=== PATIENT | male | born 1945 | race American Indian/Alaskan Native ===

== ENCOUNTER 2016-08-17 09:43 | Outpatient (CLI) | payer MEDICARE ==
--- NOTE | 2016-08-18 10:11 | Magnetic Resonance Report ---
MRI of the lumbar spine without contrast. History: Low back pain/spinal disorder. Procedure: Sagittal T1-weighted, T2-weighted, inversion recovery images, and axial T1 and T2-weighted images were used. Findings: Incidental note is made of a partially visualized right renal cyst measuring 2.8 cm in diameter. Correlation with renal ultrasound is recommended. The L1-2 and L2-3 levels are unremarkable. At L3-4, there is a prominent central disc herniation with marked compression of the thecal sac there is mild hypertrophy of the ligamentum flavum. Central canal stenosis is present. At the L4-5 level, there is a broad-based moderate disc branch, eccentric to the right . There is moderate effacement of the thecal sac. There is bilateral foraminal stenosis, worse on the right. The L5 S1 level is unremarkable. A transitional vertebra is seen at L1. The conus is normal. No significant bony abnormalities are seen. Impression: 1. Prominent central disc herniation L3-4 with central canal stenosis. 2. Broad-based moderate disc branch at L4-5, eccentric to the right with right foraminal stenosis. 3. Partially imaged right renal cyst. Correlation with renal ultrasound is recommended for full evaluation.
== END 2016-08-17 09:44 | disposition home or self-care (01) ==
LOC: MRI 09:43
PROVIDERS: ATTEND Neurological Surgery
DX: M48.06 Spinal stenosis, lumbar region (principal); M51.26 Other intervertebral disc displacement, lumbar region; M24.28 Disorder of ligament, vertebrae; N28.1 Cyst of kidney, acquired
CPT/HCPCS: 72148

== ENCOUNTER 2016-11-16 20:04 | Inpatient (IN) | payer MEDICARE ==
[2016-11-16 21:08] LABS: Basophils % (Auto) 0.6 % (0.0-1.8); Eosinophils % (Auto) 1.5 % (0.0-4.3); Hematocrit 38.2 % (35.5-45.6); Hemoglobin 12.5 gm/dl (11.8-15.2); Mean Corpuscular HGB Conc 33 % (32-34); Mean Corpuscular Hemoglobin 33 pg (28-32); Mean Corpuscular Volume 100 fl (84-94); Platelet Count 188 K/mm3 (140-440); Red Blood Count 3.82 M/mm3 (3.65-5.03); Red Cell Distribution Width 15.2 % (13.2-15.2); White Blood Count 5.9 K/mm3 (4.5-11.0)
[2016-11-16 21:52] LABS: Anion Gap 20 mmol/L; BUN/Creatinine Ratio 14.66; Blood Urea Nitrogen 22 mg/dL (9-20); Calcium 9.5 mg/dL (8.4-10.2); Carbon Dioxide 23 mmol/L (22-30); Chloride 102.1 mmol/L (98-107); Glucose 93 mg/dL (75-100); Potassium 4.3 mmol/L (3.6-5.0); Sodium 141 mmol/L (137-145)
--- NOTE | 2016-11-16 23:03 | Cat Scan Report ---
FINAL REPORT PROCEDURE: CT ANGIO CHEST TECHNIQUE: Computerized tomographic angiography of the chest was performed after the IV injection of iodinated nonionic contrast including image processing. The image data was postprocessed using 2-dimensional multiplanar reformatted (MPR) and 3-dimensional (MIP and/or volume rendered) techniques. HISTORY: CHEST PAIN WITH SYNCOPE COMPARISON: No prior studies are available for comparison. FINDINGS: Heart and pericardium: Normal. Thoracic aorta: Normal. Pulmonary vasculature: Normal. Lymph nodes: No enlarged thoracic lymph nodes. Lungs: A 3 millimeters subpleural nodule is noted in the lateral aspect of right upper lobe and a 4 millimeter nodule is noted in the lateral aspect of right middle lobe. There are no confluent infiltrates. Pleural spaces are clear. Pleural space: No effusion, thickening, or pneumothorax. Musculoskeletal structures: No significant abnormality. Upper abdominal structures: There are 2 simple appearing cysts identified in the visualized upper portion of right kidney larger measuring 2.9 centimeters.. IMPRESSION: No evidence of pulmonary embolism No acute pulmonary infiltrates Small subpleural nodules in right upper and middle lobes as described above. A 3 to six-month follow-up study may be recommended for further evaluation.
--- NOTE | 2016-11-16 23:56 | Emergency Department Report ---
ED Chest Pain HPI - General Chief Complaint: Syncope Stated Complaint: CHEST PAIN Time Seen by Provider: 11/16/16 20:39 Source: patient, family Mode of arrival: Ambulatory Limitations: No Limitations - History of Present Illness MD Complaint: chest pain -: Sudden Pain Location: substernal, left chest Severity scale (0 -10): 7 Quality: heaviness Worsens With: exertion re: denies: nausea, vomting Other Symptoms: denies: cough Treatments Prior to Arrival: none - Related Data Home Medications Medication Instructions Recorded Confirmed Last Taken Aspirin [Ecotrin] 81 mg PO DAILY 07/09/13 11/16/16 07/09/13 Lisinopril [Zestril TAB] 10 mg PO DAILY 07/09/13 11/16/16 07/09/13 Previous Rx's Medication Instructions Recorded Last Taken Type HYDROcodone/APAP 5-325 [[place] 1 each PO Q6HR PRN #15 tablet 06/09/13 07/09/13 Rx 5/325 mg] Meclizine HCl [Antivert] 25 mg PO TID PRN #20 tablet 07/10/13 Unknown Rx Allergies Allergy/AdvReac Type Severity Reaction Status Date / Time benzidene Allergy Rash Uncoded 06/09/13 14:18 Heart Score - HEART Score History: Moderately suspicious EKG: Non-specific Age: > 65 Risk factors: > 3 risk factors or hx of atherosclerotic disease Troponin: < normal limit HEART Score: 6 - Critical Actions Critical Actions: 4-6 pts:12-16.6% risk of adverse cardiac event. Should be admitted ED Review of Systems ROS: Stated complaint: SYNCOPE EPISODE Other details as noted in HPI Comment: All other systems reviewed and negative ED Past Medical Hx - Past Medical History Previous Medical History?: Yes Hx Hypertension: Yes Hx CVA: No Hx Diabetes: No Hx Renal Disease: No Hx Arthritis: Yes Hx Seizures: No Hx Asthma: No Additional medical history: PTSD - Surgical History Past Surgical History?: No Hx Pacemaker: No - Social History Smoking Status: Never Smoker - Medications Home Medications: Home Medications Medication Instructions Recorded Confirmed Last Taken Type HYDROcodone/APAP 5-325 [[place] 1 each PO Q6HR PRN #15 tablet 06/09/13 11/16/16 Rx 5/325 mg] Aspirin [Ecotrin] 81 mg PO DAILY 07/09/13 11/16/16 07/09/13 History Lisinopril [Zestril TAB] 10 mg PO DAILY 07/09/13 11/16/16 07/09/13 History Meclizine HCl [Antivert] 25 mg PO TID PRN #20 tablet 07/10/13 11/16/16 Unknown Rx ED Physical Exam - General Limitations: No Limitations General appearance: alert - Head Head exam: Present: atraumatic - ENT ENT exam: Present: normal exam - Neck Neck exam: Present: normal inspection - Respiratory Respiratory exam: Present: normal lung sounds bilaterally - Cardiovascular Cardiovascular Exam: Present: regular rate - GI/Abdominal GI/Abdominal exam: Present: soft. Absent: distended, tenderness, guarding, rebound - Extremities Exam Extremities exam: Present: normal inspection - Back Exam Back exam: Present: normal inspection - Neurological Exam Neurological exam: Present: alert, oriented X3, CN II-XII intact, normal gait, reflexes normal. Absent: altered, motor sensory deficit - Skin Skin exam: Present: warm, dry ED Course Vital Signs 11/16/16 20:16 Temperature 98.3 F Pulse Rate 74 Blood Pressure 120/68 O2 Sat by Pulse 97 Oximetry - Reevaluation(s) Reevaluation #1: 11/16/16 23:[address] ANGIOGRAM IS NEGATIVE. AMALIA score - Amalia Score Age > 65: (1) Yes Aspirin use within the Past 7 Days: (0) No 3 or more CAD Risk Factors: (0) No 2 or more Angina events in past 24 hrs: (0) No Known CAD with more than 50% Stenosis: (0) No Elevated Cardiac Markers: (0) No ST Deviation Greater than 0.5mm: (0) No AMALIA Score: 1 ED Medical Decision Making - Lab Data Result diagrams: 11/16/16 20:46 11/16/16 20:46 Critical care attestation.: If time is entered above; I have spent that time in minutes in the direct care of this critically ill patient, excluding procedure time. ED Disposition Clinical Impression: Chest pain Disposition: OP ADMIT IP TO THIS HOSP Is pt being admited?: Yes Does the pt Need Aspirin: Yes Condition: Stable Instructions: Chest Pain (ED) Referrals: PRIMARY CARE,MD [Primary Care Provider] - 3-5 Days
[2016-11-16] MEDS ORDERED: BABY ASPIRIN PO ONE (23:59)
[2016-11-17] MEDS ORDERED: ZOFRAN IV PRN (00:22)
[2016-11-17] MEDS ORDERED: TYLENOL PO PRN (00:22)
[2016-11-17] MEDS ORDERED: DULCOLAX PR PRN (00:22)
[2016-11-17] MEDS ORDERED: MILK OF MAGNESIA PO PRN (00:22)
[2016-11-17] MEDS ORDERED: PERCOCET 5/325 PO PRN (00:22)
--- NOTE | 2016-11-17 00:28 | History and Physical Report ---
History of Present Illness Date of examination: 11/17/16 History of present illness: 70-year-old man with history of hypertension, PTSD comes emergency room with complaining of feeling dizzy and passing out shortly after he ate. He also complaining of chest pain in the left substernal area which she describes as a sharp pain, constant, lasting for one hour, intensity 7/10, no radiation any cannot identify exacerbating or relieving factors. He admits to diaphoresis, no nausea vomiting, shortness of breath, palpitation Patient denies cough, abdominal pain, hematochezia, dysuria, frequency, focal weakness, dysarthria, fever chills, polydipsia polyuria, hot or cold intolerance , easy bruisability, or rash or bleeding from mucosal membrane, rhinorrhea, epistaxis, earache, tinnitus, blurry vision, eye discharge, anxiety, depression. Other review of systems negative PAST SURGICAL HISTORY: None SOCIAL HISTORY:Drink 1 beer a day, no alcohol or drugs FAMILY HISTORY: Hypertension Medications and Allergies Allergies Allergy/AdvReac Type Severity Reaction Status Date / Time benzidene Allergy Rash Uncoded 06/09/13 14:18 Home Medications Medication Instructions Recorded Confirmed Last Taken Type HYDROcodone/APAP 5-325 [[place] 1 each PO Q6HR PRN #15 tablet 06/09/13 11/16/16 Rx 5/325 mg] Aspirin [Ecotrin] 81 mg PO DAILY 07/09/13 11/16/16 07/09/13 History Lisinopril [Zestril TAB] 10 mg PO DAILY 07/09/13 11/16/16 07/09/13 History Meclizine HCl [Antivert] 25 mg PO TID PRN #20 tablet 07/10/13 11/16/16 Unknown Rx Exam - Physical Exam Narrative exam: Gen. appearance: Patient lying in bed, no apparent distress HEENT: Normocephalic, atraumatic, pupils equally round and reactive to light, extraocular movement intact, and no sclericterus,. No JVD or thyromegaly or nodule,neck supple, no carotid bruit ,mucous membranes moist, no exudate or erythema Heart: S1, S2, regular rate and rhythm Lungs: Clear to auscultation bilaterally, breathing comfortable Abdomen: Positive bowel sounds, nontender, nondistended, no organomegaly Extremity: No edema, cyanosis, clubbing Skin: No rash, nodules, warm, dry Neuro: Oriented 3, cranial nerves II-12 intact, speech is fluent, motor and sensory intact - Constitutional Vitals: Temp Pulse Resp BP Pulse Ox 98.3 F 74 120/68 97 11/16/16 20:16 11/16/16 20:16 11/16/16 20:16 11/16/16 20:16 Results - Labs CBC & Chem 7: 11/16/16 20:46 11/16/16 20:46 Labs: Abnormal lab results 11/16/16 11/16/16 Range/Units 20:46 20:46 MCV 100 H (84-94) fl MCH 33 H (28-32) pg [place] % (Auto) 10.5 H (0.0-7.3) % BUN 22 H (9-20) mg/dL - Imaging and Cardiology EKG: image reviewed CT scan - chest: report reviewed Assessment and Plan Chest pain, rule out ACS Syncope Hypertension now normotensive PTSD Admit to medicine Check cardiac enzymes, stress test, consult cardiology Continue outpatient medication, start DVT prophylaxis
[2016-11-17 01:24] LABS: Creatine Kinase MB 2.5 ng/mL (0.0-4.0)
[2016-11-17 01:25] LABS: Creatine Kinase 258 units/L (55-170)
[2016-11-17] MEDS ORDERED: DESYREL PO SCH (01:42)
[2016-11-17 06:27] LABS: Creatine Kinase MB 2.5 ng/mL (0.0-4.0)
[2016-11-17 06:30] LABS: Creatine Kinase 257 units/L (55-170)
--- NOTE | 2016-11-17 08:02 | Admit Criteria Form ---
Admission Criteria Documentation: CHEST PAIN Clinical Indications for Admission to Inpatient Care (Place 'X' for any and all applicable criteria): Admission is indicated for chest pain and ANY ONE of the following(1)(2)(3)(4)(5 ): [ ]I. Angina with acute coronary syndrome (Also use Myocardial Infarction or Angina guideline) [ ]II. Hemodynamic instability [ ]III. Angina needing acute intervention as indicated by ALL of the following( 11)(12): [ ]a) Unstable angina is present as indicated by angina that is ANY ONE of the following: [ ]i) New onset [ ]ii) Nocturnal [ ]iii) Prolonged at rest [ ]iv) Progressive [ ]b) Angina warrants acute intervention as indicated by ANY ONE of the following: [ ]i) Recurrent angina (e.g, not responding as previously to treatment) [ ]ii) Angina at rest or with low-level activities despite initial medical therapy [ ]iii) New or presumably new ST-segment depression on ECG [ ]iv) Signs or symptoms of heart failure (eg, dyspnea, pulmonary edema) [ ]v) New or worsening mitral regurgitation [ ]vi) Hemodynamic instability [ ]vii) Dangerous arrhythmia (eg, sustained ventricular tachycardia) [ ]viii) History of percutaneous coronary intervention within 6 months [ ]ix) History of coronary artery bypass graft surgery [ ]x) AMALIA risk score of 2 or greater[A] [ ]xi) History of Diabetes(14) [ ]xii) High-risk cardiac ischemia findings on noninvasive testing (e.g, echocardiogram, treadmill testing, nuclear scan) [ ]xiii) Chronic renal insufficiency (ie, estimated GFR less than 60 mL/min/1.732m) [ ]xiv) Left ventricular ejection fraction less than 40% [ ]IV. Evidence of PR (eg, cardiac biomarkers positive, ST-segment elevation on ECG) also use Myocardial Infarction Criteria Form. [ ]V. Pulmonary edema [ ]. Respiratory distress [ ]VII. Chest pain indicative of serious diagnosis other than coronary artery disease (eg, aortic dissection) [ ]VIII. Contraindications and/or Inappropriate clinical situations for Observational Care in patients with Chest Pain, when ANY ONE of the following is required: [ ]a) Patient with risk factor for pulmonary embolism, acute coronary syndrome and myocardial infarction (18) [ ]b) Patient with Pulmonary embolism require an average LOS of 4.3 days, therefore emergency department observation management is inappropriate 18,23 [ ]c) Painful condition/s in the elderly, have the highest rate of recidivism after emergency department observation management (10.8%) 20,21,22 [ ]d) Elevated cardiac biomarker requires intensive and exhaustive care (19) [X ]IX. General contraindications and/or Inappropriate clinical situations for Observational Care in patients with Chest Pain, when ANY ONE of the following is required: [X ]a) Prediction of prolongation of LOS based on ANY ONE of the following may be considered as a contraindication for observational care 2, 3, 4, 5, 6, 7, 8, 9, 10, 11 [X ]i) Age > 65 yrs. [ X]ii) Patient arriving by ambulance [ ]iii) Patient with high acuity [ ]iv) Patient requiring vital sign monitoring [ ]v) Patient on IV medication [ ]b) Systolic blood pressures 180mmHg 3,12 [ ]c) Patient with altered mental status including delirium and other alteration of consciousness, (3) [ ]d) Patient whose discharge disposition will be to a prison home or rehabilitation home should not be managed in Emergency Department Observation Unit. CMS rule requires 3 days hospital stay before such placement. 3,13 [ ]e) Patient with failure to thrive due to broad array of etiologies 3,16,17 [ ]f) Inability to ambulate 3,14 Extended stay beyond goal length of stay may be needed for (1)(28): [ ]a) Specific condition diagnosed after evaluation (eg, pulmonary embolism, aortic dissection) [ ]b) Unstable angina [ ]c) Continued suspicion of acute coronary syndrome with inability to complete needed cardiac evaluation (eg, patient clinically unable to undergo stress testing) [ ]d) Myocardial infarction (Contents from ANGINA and CHEST PAIN clinical indications for admission to inpatient care have been integrated in this form) The original [employer] content created by [employer] has been revised. The portions of the content which have been revised are identified through the use of italic text or in bold, and [facility] has neither reviewed nor approved the modified material. All other unmodified content is copyright [employer]. Please see references footnoted in the original [facility] edition 2016 Admission Criteria Met: Yes
--- NOTE | 2016-11-17 09:39 | Consultation ---
History of Present Illness Consult date: 11/17/16 Requesting physician: SACHIN BLUNT Consult reason: chest pain, syncope History of present illness: The patient is a 70 year old male with a history of hypertension, vertigo, PTSD who presented following a syncopal episode at home. He states that he has just finished eating and was sitting down when he suddenly felt dizzy and had a left sided headache. He felt himself "going out" and apparently lost consciousness for several minutes according to his . He remained seated in the chair throughout the episode. When he came to he did complain of some left sided chest pain and mild shortness of breath. He states that the pain resolved after EMS arrived and placed him on oxygen. Troponin negative x 3. Chest CTA negative for PE. Lexiscan thallium stress test done this morning was negative for ischemia. Past History Past Medical History: hypertension, other (PTSD, vertigo) Past Surgical History: No surgical history Social history: , full code. denies: smoking, alcohol abuse, prescription drug abuse, IV drug use Family history: no significant family history Medications and Allergies Allergies Allergy/AdvReac Type Severity Reaction Status Date / Time benzidene Allergy Rash Uncoded 06/09/13 14:18 Home Medications Medication Instructions Recorded Confirmed Last Taken Type HYDROcodone/APAP 5-325 [[place] 1 each PO Q6HR PRN #15 tablet 06/09/13 11/16/16 Rx 5-325 mg TAB] Aspirin [Aspirin Enteric Coated] 81 mg PO DAILY 07/09/13 11/16/16 07/09/13 History Lisinopril [Zestril TAB] 10 mg PO DAILY 07/09/13 11/16/16 07/09/13 History Meclizine HCl [Antivert] 25 mg PO TID PRN #20 tablet 07/10/13 11/16/16 Unknown Rx Famotidine [Pepcid] 20 mg PO BID #30 tablet 11/17/16 Unknown Rx Active Meds: Active Medications Acetaminophen (Tylenol) 650 mg PO Q4H PRN PRN Reason: Pain MILD(1-3)/Fever >100.5/COLON Aspirin (Halfprin Ec) 81 mg PO DAILY MARY Bisacodyl (Dulcolax) 10 mg HI QDAY PRN PRN Reason: Constipation unrelieved by MOM Enoxaparin Sodium (Lovenox) 30 mg SUB-Q QDAY [facility] Magnesium Hydroxide (Milk Of Magnesia) 30 ml PO Q4H PRN PRN Reason: Constipation Ondansetron HCl (Zofran) 4 mg IV Q8H PRN PRN Reason: N/V unrelieved by Reglan Oxycodone/Acetaminophen (Percocet 5/325) 1 tab PO Q6H PRN PRN Reason: Pain, Moderate (4-6) Trazodone HCl (Desyrel) 100 mg PO QHS [facility] Last Admin: 11/17/16 02:00 Dose: 100 mg Review of Systems Constitutional: no fever, no chills Ears, nose, mouth and throat: no nasal congestion, no nasal discharge, no sinus pressure Cardiovascular: chest pain, syncope, shortness of breath Respiratory: no cough, no congestion, no wheezing Gastrointestinal: no abdominal pain, no nausea, no vomiting, no diarrhea, no constipation Genitourinary Male: no dysuria, no hematuria Musculoskeletal: no neck stiffness, no neck pain, no myalgias Integumentary: no rash, no pruritis Neurological: no parathesias, no numbness, no tingling, no headaches Endocrine: no cold intolerance, no heat intolerance Hematologic/Lymphatic: no easy bruising, no easy bleeding Allergic/Immunologic: no urticaria, no wheezing Physical Examination Vital Signs Temp Pulse BP Pulse Ox 98.3 F 74 120/68 97 11/16/16 20:16 11/16/16 20:16 11/16/16 20:16 11/16/16 20:16 General appearance: no acute distress HEENT: Positive: PERRL, Normocephaly, Mucus Membranes Moist Neck: Positive: neck supple, trachea midline Cardiac: Positive: Reg Rate and Rhythm, S1/S2 Lungs: Positive: clear to auscultation Neuro: Positive: Grossly Intact Abdomen: Positive: Soft, Active Bowel Sounds Skin: Positive: Clear. Negative: Rash Extremities: Present: normal. Absent: edema Results 11/16/16 20:46 11/16/16 20:46 Cardiac Enzymes 11/17/16 11/17/16 Range/Units 00:46 04:37 CK-MB (CK-2) 2.5 2.5 (0.0-4.0) ng/mL - Imaging and Cardiology Echo: report reviewed EKG: image reviewed EKG interpretations - Telemetry EKG Rhythm: Sinus Rhythm - EKG Sinus rhythms and dysrhythmias: sinus rhythm Repolarization changes or abnormalities: nonspecific abnormality, ST segment, and/or T wave Assessment and Plan Chest pain resolved troponin negative x 3 no acute EKG changes Stress MPI today: no ischemia Syncope->? etiology chest CTA negative for PE no arrhythmias noted on telemetry Hypertension stable Lexiscan thallium stress test today was negative for ischemia. Stable cardiac status. Follow up in the office in 1-2 weeks. The patient has been seen in conjunction with Dr. Carrasco who agrees with the assessment and plan of care. Thank you Dr. Blunt for allowing us to participate in the care of this patient.
[2016-11-17] MEDS ORDERED: LEXISCAN IV ONE ×2 (09:50→10:00)
[2016-11-17] MEDS ORDERED: LOVENOX SUB-Q SCH ×2 (10:00)
[2016-11-17] MEDS ORDERED: HALFPRIN EC PO SCH (10:00)
[2016-11-17] MEDS ORDERED: ZESTRIL PO SCH (10:00)
--- NOTE | 2016-11-17 10:23 | Discharge Summary ---
Providers - Providers Date of Admission: 11/17/16 00:22 Date of discharge: 11/17/16 Attending physician: OSVALDO BROWN 11/17/16 03:36 Consult to Physician [CONS] Routine Consulting Provider: UTE VERDUZCO Reason For Exam: cp/syncope Notified:: real estate legal secretary pl call Primary care physician: YAMINI MOSLEY MD Hospitalization Condition: Good Hospital course: patient is 70-year-old with history of hypertension. He presents with chest pain and syncope. Troponin was normal in Emergency Dept. Was given aspirin and admitted to rule out acute coronary syndrome. He was evaluated by sales program manager , stress test was ordered. Stress test was normal and he was therefore discharged home. Chest pain due to GERD Disposition: DC-01 TO HOME OR SELFCARE - Discharge Diagnoses (1) Chest pain Status: Acute Qualifiers: Chest pain type: C Ischemic chest pain type: I Comment: due to GERD (2) Vasovagal syncope Status: Acute (3) HTN (hypertension), benign Status: Chronic Core Measure Documentation - Palliative Care Palliative Care/ Comfort Measures: Not Applicable - Core Measures Any of the following diagnoses?: none Exam - Constitutional Vitals: Temp Pulse Resp BP Pulse Ox 98.2 F 64 18 110/70 98 11/17/16 08:10 11/17/16 08:10 11/17/16 08:10 11/17/16 08:10 11/17/16 08:10 General appearance: Present: no acute distress - Neck Neck: Present: supple - Respiratory Respiratory: bilateral: CTA - Cardiovascular Rhythm: regular Heart Sounds: Present: S1 & S2 Plan Activity: advance as tolerated Diet: low fat, low cholesterol, low salt Additional Instructions: 1.Follow up with PCP in 1 week. 2.Follow up with Cardiology in 1 week Follow up with: PRIMARY CAREMD [Primary Care Provider] - 3-5 Days Prescriptions: Famotidine [Pepcid] 20 mg PO BID #30 tablet
--- NOTE | 2016-11-17 11:09 | Event Note ---
Date: 11/17/16 Stress test with nuclear perfusion imaging performed earlier this mornin. No evidence of active ischemia or prior infarction 2. Normal left ventricle systolic performance without evidence of transient ischemic dilatation or stress-induced segmental wall motion abnormalities. 3. Lexiscan portion of stress test reported separately.
[2016-11-17 12:35] VITALS: BP 112/69
== END 2016-11-17 14:28 | disposition home or self-care (01) | DRG 312 ==
LOC: ED 20:04 → 4A 11-17 00:22 → OBSVTOIN 11-17 11:46
PROVIDERS: ADMIT Internal Medicine; ATTEND Internal Medicine
DX: R55 Syncope and collapse (principal); I10 Essential (primary) hypertension; F43.10 Post-traumatic stress disorder, unspecified; Z82.49 Family history of ischemic heart disease and other diseases of the circulatory system; Z88.8 Allergy status to other drugs, medicaments and biological substances; Z79.82 Long term (current) use of aspirin; K21.9 Gastro-esophageal reflux disease without esophagitis
CPT/HCPCS: 36415; 71275; 78452; 80048; 82550; 82553; 84484; 85025; 85379; 93005; 93010; 93017; 93306; A9502; J2785; Q9967

== ENCOUNTER 2018-11-20 17:50 | Emergency (ER) | payer MEDICARE ==
[2018-11-20 20:29] LABS: Calcium 9.5 mg/dL (8.4-10.2)
[2018-11-20 20:50] LABS: Hematocrit 35.2 % (35.5-45.6); Hemoglobin 11.8 gm/dl (11.8-15.2); Mean Corpuscular HGB Conc 34 % (32-34); Mean Corpuscular Volume 93 fl (84-94); Platelet Count 204 K/mm3 (140-440); Red Blood Count 3.78 M/mm3 (3.65-5.03); Red Cell Distribution Width 17.3 % (13.2-15.2)
[2018-11-20] MEDS ORDERED: NACL 0.9% 1000 ML 1,000 ML IV ONE (21:02)
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
[2018-11-20 22:21] VITALS: BP 146/81
== END 2018-11-20 23:00 | disposition home or self-care (01) ==
LOC: ED 17:50
DX: E86.0 Dehydration (principal); R55 Syncope and collapse; T67.5XXA Heat exhaustion, unspecified, initial encounter; I10 Essential (primary) hypertension; F43.10 Post-traumatic stress disorder, unspecified; Z87.891 Personal history of nicotine dependence; Z88.5 Allergy status to narcotic agent; Z79.82 Long term (current) use of aspirin; Z79.899 Other long term (current) drug therapy; X58.XXXA Exposure to other specified factors, initial encounter; Y93.89 Activity, other specified; Y92.89 Other specified places as the place of occurrence of the external cause; Y99.8 Other external cause status
CPT/HCPCS: 36415; 80048; 84484; 85027; 93005; 93010; 96360; 99284; J7030